=== PATIENT | male | born 1955 | race Caucasian/White ===

== ENCOUNTER → 2019-05-05 | Outpatient (CLI) | payer OTHER ==
[~2019-05-05] MED LIST: ASA5UEC PO; ASA81BEC PO; FLOMAX0.4 MG PO; LISINOPRIL-HCT1 EACH PO; PHENTERMINE H37.5 MG PO; PRILOSEC40 MG PO; SENOKOT-S1 TA1 PO; TOPAMAX 25 MG T25 M1 PO; ZOCOR40 MG PO
== END ==
LOC: MRI 12:31
DX: M47.816 Spondylosis without myelopathy or radiculopathy, lumbar region (principal); M51.27 Other intervertebral disc displacement, lumbosacral region; M51.26 Other intervertebral disc displacement, lumbar region; M12.88 Other specific arthropathies, not elsewhere classified, other specified site; M48.062 Spinal stenosis, lumbar region with neurogenic claudication; M51.46 Schmorl's nodes, lumbar region; M46.06 Spinal enthesopathy, lumbar region; M48.07 Spinal stenosis, lumbosacral region; W19.XXXA Unspecified fall, initial encounter; Y93.89 Activity, other specified; Y92.89 Other specified places as the place of occurrence of the external cause; Y99.8 Other external cause status

== ENCOUNTER → 2021-01-22 | Outpatient (CLI) | payer OTHER ==
[2021-01-22 11:20] LABS: ABSOLUTE NEUTROPHILS 4.4 thou/uL (1.4-8.2); BASOPHILS 0.7 % (0.0-2.0); EOSINOPHILS 0.7 % (0.0-3.0); HEMATOCRIT 45.1 % (42.0-52.0); HEMOGLOBIN 15.3 gm/dL (14.0-18.0); LYMPHOCYTES 14.9 % (24.0-44.0); MCH 35.1 pg (26.0-34.0); MCV 103.1 fL (80.0-100.0); MONOCYTES 8.6 % (1.0-8.0); PLATELET COUNT 188 thou/uL (150-400); POLYS 75.1 % (36.0-66.0); RBC 4.37 mil/uL (4.50-6.00); RDW 13.5 % (10.5-14.5); WBC 5.9 thou/uL (4.0-11.0)
[2021-01-22 11:36] LABS: ALBUMIN 4.6 g/dL (3.4-5.0); ANION GAP 15 mmol/L (7-16); BUN 15 mg/dL (7-18); CALCIUM 9.4 mg/dL (8.5-10.1); CHLORIDE 102 mmol/L (98-107); CO2 23 mmol/L (21-32); GLUCOSE 102 mg/dL (74-106); POTASSIUM 4.3 mmol/L (3.5-5.1); SGOT 91 U/L (15-37); SGPT 79 U/L (16-63); SODIUM 140 mmol/L (136-145); TOTAL PROTEIN 8.3 g/dL (6.4-8.2)
[2021-01-22 11:48] LABS: CHOLESTEROL 179 mg/dL (<200); HDL CHOLESTEROL 68 mg/dL (>40); LDL CHOLESTEROL 92 mg/dL (<100); TC:HDL 2.6 Ratio (Not establshd); TRIGLYCERIDE 95 mg/dL (<150); VLDL 19 mg/dL (<40)
[2021-01-22 22:06] LABS: GLYCOHEMOGLOBIN (HGB A1C) 5.3 % (4.8-5.6)
== END ==
LOC: LAB 10:40
PROVIDERS: ATTEND Neuromusculoskeletal Medicine & OMM
DX: Z12.5 Encounter for screening for malignant neoplasm of prostate (principal); Z00.00 Encounter for general adult medical examination without abnormal findings; E78.00 Pure hypercholesterolemia, unspecified; Z79.899 Other long term (current) drug therapy

== ENCOUNTER → 2021-01-30 | Outpatient (CLI) | payer OTHER ==
[~2021-01-30] MED LIST changes: +ASPIRIN EC325 M1 PO; +TOPAMAX50 MG PO; +VITAMIN D350 MC3 PO
== END ==
LOC: LAB 08:49
PROVIDERS: ATTEND Internal Medicine Gastroenterology
DX: Z01.812 Encounter for preprocedural laboratory examination (principal); Z20.822 Contact with and (suspected) exposure to COVID-19

== ENCOUNTER → 2021-02-04 | Outpatient (CLI) | payer OTHER ==
[~2021-02-04] VITALS: Ht 182.9 cm; Wt 111.1 kg
--- NOTE | 2021-02-06 16:06 | PATH ---
[facility] [place] [address] PATHOLOGY RPT PROCEDURE Name: MIGUEL ANGELYUKI LANZA DOMENIC Room #: [id number] Admission: 02/04/21 Date of : 59 Discharge: Report #: [id number] Path Case #: [id number] [facility] Accession Number: [id number] . 01 Material submitted: . PART A: hepatic flexure - HEPATIC FLEXURE POLYP X2. Modifiers: X2 PART B: colon - TRANSVERSE COLON POLYP X2. Modifiers: transverse, X2 PART C: sigmoid colon - SIGMOID COLON POLYP X3. Modifiers: X3 . 01 Clinical history: . COLONOSCOPY SCREENING FOR CRC . 02 Diagnosis: A. Polyp x2, hepatic flexure polyp, endoscopic biopsy: - Tubular adenoma x1; negative for high-grade dysplasia. - Hyperplastic polyp x1; negative for dysplasia. . B. Polyp x2, transverse colon polyp, endoscopic biopsy: - Both fragments showing tubular adenoma. - Negative for high-grade dysplasia. . C. Polyp x3, sigmoid colon polyp, endoscopic biopsy: - Tubular adenoma in multiple fragments. - Negative for high-grade dysplasia. . (IUV:library media specialist; 02/06/2021) MBR 02/06/2021 1412 Local . 02 Electronically signed: . Aicha Benson MD, Pathologist NPI- [id number] . 01 Gross description: . A. The specimen is received in formalin, labeled "Yuki Johnson, hepatic flexure polyp". Received is a segment of pale tran tissue measuring 0.4 in maximum dimensions. The specimen is submitted entirely in A1. Upon careful inspection and filtration, no additional tissue is found remaining within the container. . B. The specimen is received in formalin, labeled "Yuki Johnson transverse colon polyp". Received are two segments of pale tran tissue measuring 0.6 cm in maximum dimensions. The specimen is submitted entirely in B1. . C. The specimen is received in formalin, labeled "Yuki Johnson, sigmoid colon polyp". Received are three segments of pale tran tissue ranging in size from 0.3-0.8 cm in maximum dimensions. The surgical margin of the [address] [address] PATHOLOGY RPT PROCEDURE Name: YUKI JOHNSON Room #: REG JALEEL Dodge#: [id number] Admission: 02/04/21 Date of : 59 Discharge: Report #: [id number] Path Case #: [id number] larger segment is inked and the segment is bisected. The specimen is submitted entirely in cassette C1. (CAA; 02/05/2021) QAC/QAC 02/05/2021 1201 Local . 02 Pathologist provided ICD-10: D12.3, D12.5 . 02 CPT . 968062, 390268, 149640 Specimen Comment: A courtesy copy of this report has been sent to [phone] Specimen Comment: [phone] Specimen Comment: Report sent to / DR DE GUZMAN Performed at: [address], [place] [id number] MD Tay Kidd MD Phone: [phone] Performed at: [address] [id number] MD Aicha Benson MD Phone: [phone]
== END | disposition home or self-care (01) ==
LOC: GI 06:51
PROVIDERS: ATTEND Internal Medicine Gastroenterology
DX: Z12.11 Encounter for screening for malignant neoplasm of colon (principal); D12.3 Benign neoplasm of transverse colon; D12.5 Benign neoplasm of sigmoid colon; K57.30 Diverticulosis of large intestine without perforation or abscess without bleeding; K64.8 Other hemorrhoids; K21.9 Gastro-esophageal reflux disease without esophagitis; I10 Essential (primary) hypertension; N40.0 Benign prostatic hyperplasia without lower urinary tract symptoms; E78.00 Pure hypercholesterolemia, unspecified; Z98.890 Other specified postprocedural states; Z79.899 Other long term (current) drug therapy
CPT/HCPCS: 62110; 62900

== ENCOUNTER → 2021-05-23 | Outpatient (CLI) | payer OTHER ==
[2021-05-23 14:06] LABS: ABSOLUTE NEUTROPHILS 3.6 thou/uL (1.4-8.2); BASOPHILS 0.7 % (0.0-2.0); EOSINOPHILS 0.7 % (0.0-3.0); HEMATOCRIT 44.8 % (42.0-52.0); HEMOGLOBIN 15.6 gm/dL (14.0-18.0); LYMPHOCYTES 20.3 % (24.0-44.0); MCH 35.5 pg (26.0-34.0); MCHC 34.7 g/dL (28.0-37.0); MCV 102.2 fL (80.0-100.0); MONOCYTES 10.4 % (1.0-8.0); PLATELET COUNT 221 thou/uL (150-400); POLYS 67.9 % (36.0-66.0); RBC 4.38 mil/uL (4.50-6.00); RDW 13.7 % (10.5-14.5); WBC 5.3 thou/uL (4.0-11.0)
[2021-05-23 14:21] LABS: ALBUMIN 4.1 g/dL (3.4-5.0); CALCIUM 9.3 mg/dL (8.5-10.1); MAGNESIUM 1.9 mg/dL (1.8-2.4); POTASSIUM 5.3 mmol/L (3.5-5.1); TOTAL BILIRUBIN 0.9 mg/dL (0.2-1.0)
== END ==
LOC: LAB 13:21
PROVIDERS: ATTEND Neuromusculoskeletal Medicine & OMM
DX: R55 Syncope and collapse (principal)

== ENCOUNTER → 2021-06-27 | Outpatient (CLI) | payer OTHER | LOC: SJCVCIMAG 06:59 | PROVIDERS: ATTEND Internal Medicine | DX: I95.89 Other hypotension (principal); R55 Syncope and collapse; E78.5 Hyperlipidemia, unspecified; K21.9 Gastro-esophageal reflux disease without esophagitis; M10.9 Gout, unspecified; Z79.82 Long term (current) use of aspirin; Z79.899 Other long term (current) drug therapy; Z87.891 Personal history of nicotine dependence; Z72.89 Other problems related to lifestyle ==